=== PATIENT | female | born 1955 | race African-American/Black ===

== ENCOUNTER 2016-11-11 17:33 | Emergency (ER) | payer MEDICARE, MEDICAID ==
[~2016-11-11] VITALS: Ht 165.1 cm; Wt 70.0 kg
[~2016-11-11 17:33] MED LIST: ATOR10TA PO; ESOM40CA PO; KEPP500 PO; LORA-250 PO; MAX PO; METF500T4 PO; MULT-1146 PO; PHEN100C4 PO; calcium citrate
[2016-11-11] MEDS ORDERED: LACTATED RINGERS 1,000 ML IV STA (18:27)
[2016-11-11] MEDS ORDERED: ONDANSETRON HCL 4MG/2ML VIAL IV STA (18:27)
[2016-11-11 19:06] LABS: CLARITY URINE CLEAR (CLEAR); COLOR URINE YELLOW (YELLOW); GLUCOSE URINE NEGATIVE (NEGATIVE); KETONES URINE NEGATIVE (NEGATIVE); LEUKOCYTE ESTERASE URINE NEGATIVE (NEGATIVE); NITRITE URINE NEGATIVE (NEGATIVE); OCCULT BLOOD URINE NEGATIVE (NEGATIVE); PH URINE 6.5 (4.5-8.0); PROTEIN URINE 2+ (NEGATIVE); SPECIFIC GRAVITY URINE 1.015 (1.005-1.030); UROBILINOGEN URINE 0.2 E.U./dL (0.2-1.0)
[2016-11-11 19:20] LABS: BASOPHILS % 0.6 % (0.0-2.0); EOSINOPHILS % 0.6 % (0.0-5.0); HEMATOCRIT. 31.5 % (36.0-48.0); HEMOGLOBIN. 10.3 g/dL (12.0-16.0); LYMPHOCYTES % 21.1 % (20.0-50.0); MEAN CORPUSCULAR HEMOGLOBIN 26.5 pg (28.0-32.0); MEAN CORPUSCULAR HGB CONC 32.6 g/dL (31.0-37.0); MEAN CORPUSCULAR VOLUME 81.5 fL (81.0-99.0); MEAN PLATELET VOLUME 7.8 fl (7.4-10.4); MONOCYTES % 11.5 % (2.0-8.0); NEUTROPHILS % 66.2 % (40.0-76.0); PLATELET 309 x1000/uL (130-400); RED BLOOD CELL COUNT 3.87 mill/uL (4.2-5.4); RED CELL DISTRIBUTION WIDTH 16.5 % (11.6-14.6)
[2016-11-11 19:24] LABS: INR 1.2; PROTHROMBIN TIME 12.3 sec
[2016-11-11 19:29] LABS: CHLORIDE 101 mEq/L (98-107)
[2016-11-11 19:31] LABS: INDEX HEMOLYSI 1 (1-3); INDEX ICTERIC 1 (1-4); INDEX LIPEMIC 1 (1-3)
[2016-11-11 19:33] LABS: ALBUMIN 3.2 g/dL (3.4-5.0); CALCIUM 8.6 mg/dL (8.5-10.1)
[2016-11-11 19:35] LABS: ANION GAP 11; CARBON DIOXIDE 28 mEq/L (21-32); LIPASE 153 IU/L (73-393); UREA NITROGEN BLOOD 26 mg/dL (7-21)
[2016-11-11 19:37] LABS: ALANINE AMINOTRANSFERASE 15 IU/L (13-61); eGFR > 60 mL/min (>60)
[2016-11-11 19:41] LABS: TROPONIN I 0.02 ng/mL (0.00-0.04)
[2016-11-11] MEDS ORDERED: LEVETIRACETAM 500MG TABLET PO ONE (19:45)
[2016-11-11 19:54] LABS: BACTERIA URINE 2+; RBC URINE NONE SEEN /hpf (0-2); SQUAMOUS EPITHELIAL CELL URINE RARE /lpf (RARE/1+); WBC URINE 0-2 /hpf (0-2)
[2016-11-11] MEDS ORDERED: SODIUM CHLORIDE 0.9% 1,000 ML IV ONE (20:15)
[2016-11-11 22:38] VITALS: BP 131/68
== END 2016-11-11 22:40 | disposition home or self-care (01) ==
LOC: ER 17:34
DX: R56.9 Unspecified convulsions (principal); R41.0 Disorientation, unspecified; I10 Essential (primary) hypertension; E11.9 Type 2 diabetes mellitus without complications; I50.9 Heart failure, unspecified; F41.9 Anxiety disorder, unspecified; F12.10 Cannabis abuse, uncomplicated
CPT/HCPCS: 36415; 71010; 80053; 81001; 83605; 83690; 84484; 85025; 85610; 96360; 96361; 99285; J7030; J7120

== ENCOUNTER 2016-11-27 10:41 | Emergency (ER) | payer MEDICARE, MEDICAID ==
[~2016-11-27] VITALS: Ht 160 cm; Wt 62.0 kg
[2016-11-27] MEDS ORDERED: LORAZEPAM 1MG TABLET PO ONE (11:45)
[2016-11-27] MEDS ORDERED: IBUPROFEN 800MG TABLET PO ONE (11:45)
[2016-11-27] MEDS ORDERED: HYDROCODONE/ACETAMINOPHEN 10/325MG TABLET PO ONE (13:30)
[2016-11-27 13:45] VITALS: BP 143/73
[2016-11-27 13:49] LABS: CLARITY URINE CLEAR (CLEAR); COLOR URINE YELLOW (YELLOW); GLUCOSE URINE NEGATIVE (NEGATIVE); KETONES URINE NEGATIVE (NEGATIVE); LEUKOCYTE ESTERASE URINE 1+ (NEGATIVE); NITRITE URINE NEGATIVE (NEGATIVE); OCCULT BLOOD URINE NEGATIVE (NEGATIVE); PROTEIN URINE NEGATIVE (NEGATIVE); SPECIFIC GRAVITY URINE 1.018 (1.005-1.030)
[2016-11-27 14:05] LABS: BACTERIA URINE 2+; RBC URINE 0-2 /hpf (0-2); SQUAMOUS EPITHELIAL CELL URINE 3+ /lpf (RARE/1+)
[2016-12-04] MEDS ORDERED: LAM25 PO (08:39)
[2016-12-04] MEDS ORDERED: ASPI81TA2 PO (08:39)
[2016-12-05] MEDS ORDERED: LEVE500T19 PO (12:18)
[2016-12-05] MEDS ORDERED: METF10002 PO (12:18)
== END 2016-11-27 14:51 | disposition home or self-care (01) ==
LOC: ER 11:08
DX: G89.29 Other chronic pain (principal); M51.26 Other intervertebral disc displacement, lumbar region; F12.90 Cannabis use, unspecified, uncomplicated; Z98.890 Other specified postprocedural states; E11.9 Type 2 diabetes mellitus without complications; F41.9 Anxiety disorder, unspecified; I10 Essential (primary) hypertension; G40.909 Epilepsy, unspecified, not intractable, without status epilepticus
CPT/HCPCS: 72131; 81001; 99285

== ENCOUNTER → 2016-12-04 | Day surgery (SDC) | payer MEDICARE, MEDICAID ==
[~2016-12-04] VITALS: Ht 160 cm; Wt 68.0 kg
[~2016-12-04] MED LIST changes: +ADENOSINE 3 MG/ML 2ML VIAL IV ONE; +ASPI81TA2 PO; +CEFAZOLIN SODIUM 1000MG/VIAL ONE; +DEXT 5% IV STA; +FENTANYL CITRATE/PF 50MCG/ML 2ML VIAL ONE; +HEPARIN SODIUM 1,000 UNIT/1ML VIAL IV ONE; +ISOPROTERENOL HCL IV STA; +LAM25 PO; +LEVE500T19 PO; +LIDOCAINE HCL 1% 20ML VIAL (Pyxis) INJ ONE; +METF10002 PO; +METOCLOPRAMIDE HCL 10MG/2ML VIAL IV PRN; +MIDAZOLAM HCL 2 MG/2 ML VIAL ONE; +PROPOFOL 10MG/ML 100ML 100 ML IV ONE; +WATER IV STA
[2016-12-04 08:48] LABS: HEMATOCRIT 35.3 % (36.0-48.0); HEMOGLOBIN 11.2 g/dL (12.0-16.0); MEAN CORPUSCULAR HEMOGLOBIN 26.3 pg (28.0-32.0); MEAN CORPUSCULAR HGB CONC 31.9 g/dL (31.0-37.0); MEAN CORPUSCULAR VOLUME 82.5 fL (81.0-99.0); PLATELET 265 x1000/uL (130-400); RED BLOOD CELL COUNT 4.28 mill/uL (4.2-5.4); RED CELL DISTRIBUTION WIDTH 16.7 % (11.6-14.6); WHITE BLOOD COUNT 11.4 x1000/uL (4.5-11.0)
[2016-12-04 08:58] LABS: PROTHROMBIN TIME 10.1 sec
[2016-12-04 09:01] LABS: ANION GAP 13; CALCIUM 9.5 mg/dL (8.5-10.1); CARBON DIOXIDE 26 mEq/L (21-32); CHLORIDE 100 mEq/L (98-107); INDEX HEMOLYSI 3 (1-3); INDEX ICTERIC 1 (1-4); INDEX LIPEMIC 1 (1-3); UREA NITROGEN BLOOD 19 mg/dL (7-21); eGFR > 60 mL/min (>60)
[2016-12-04 14:04] LABS: *AMPHETAMINES SCREEN URINE NEGATIVE (NEGATIVE); *BARBITURATES SCREEN URINE NEGATIVE (NEGATIVE); *BENZODIAZEPINES SCREEN URINE NEGATIVE (NEGATIVE); *COCAINE SCREEN URINE NEGATIVE (NEGATIVE); CANNABINOID URINE SCREEN PRESUMTIVE POSITIVE (NEGATIVE); ECSTASY MDMA SCREEN URINE NEGATIVE (NEGATIVE); METHADONE URINE SCREEN NEGATIVE (NEGATIVE); OPIATES URINE SCREEN NEGATIVE (NEGATIVE); PHENCYCLIDINE URINE SCREEN NEGATIVE (NEGATIVE)
[2016-12-04] MEDS: ONDANSETRON HCL 4MG/2ML VIAL IV PRN ×2 (17:38→18:28)
== END | disposition home or self-care (01) ==
LOC: CCL 07:15
PROVIDERS: ATTEND Internal Medicine Clinical Cardiac Electrophysiology
DX: I47.1 Supraventricular tachycardia (principal); I10 Essential (primary) hypertension; I49.3 Ventricular premature depolarization; G40.409 Other generalized epilepsy and epileptic syndromes, not intractable, without status epilepticus; I25.10 Atherosclerotic heart disease of native coronary artery without angina pectoris; Z98.84 Bariatric surgery status; E11.9 Type 2 diabetes mellitus without complications; E78.5 Hyperlipidemia, unspecified; Z87.891 Personal history of nicotine dependence; D64.9 Anemia, unspecified
CPT/HCPCS: 36415; 80048; 80305; 82962; 85027; 85610; 93005; 93620; 93621; C1730; C1731; C1732; C1893; J0153; J0690; J1644; J2250; J2405; J2704; J2765; J3010; J3490; J7060

== ENCOUNTER 2017-03-25 22:33 | Emergency (ER) | payer MEDICARE, MEDICAID ==
[~2017-03-25] VITALS: Ht 165.1 cm; Wt 84.0 kg
[~2017-03-25 22:33] MED LIST changes: -ADENOSINE 3 MG/ML 2ML VIAL IV ONE; +ASPI-1160 PO; -ASPI81TA2 PO; -ATOR10TA PO; -CEFAZOLIN SODIUM 1000MG/VIAL ONE; -DEXT 5% IV STA; -FENTANYL CITRATE/PF 50MCG/ML 2ML VIAL ONE; -HEPARIN SODIUM 1,000 UNIT/1ML VIAL IV ONE; +IOHEXOL-350 100 ML BOTTLE ONE; -ISOPROTERENOL HCL IV STA; -LAM25 PO; +LAMO25TA4 PO; -LIDOCAINE HCL 1% 20ML VIAL (Pyxis) INJ ONE; -LORA-250 PO; -MAX PO; -METOCLOPRAMIDE HCL 10MG/2ML VIAL IV PRN; -MIDAZOLAM HCL 2 MG/2 ML VIAL ONE; -PHEN100C4 PO; -PROPOFOL 10MG/ML 100ML 100 ML IV ONE; +SODIUM CHLORIDE 0.9% 10ML VIAL ONE; +TRIA1TAB94 PO; -WATER IV STA; -calcium citrate
[2017-03-25] MEDS ORDERED: ONDANSETRON HCL 4MG/2ML VIAL IV STA (22:51)
[2017-03-25] MEDS ORDERED: MORPHINE SULFATE 4 MG/ML CPJ (NOT FOR IM USE) IV STA (22:51)
[2017-03-25 23:42] LABS: HEMATOCRIT. 25.6 % (36.0-48.0); HEMOGLOBIN. 8.6 g/dL (12.0-16.0); MEAN CORPUSCULAR HEMOGLOBIN 27.5 pg (28.0-32.0); MEAN CORPUSCULAR VOLUME 81.8 fL (81.0-99.0); MEAN PLATELET VOLUME 7.7 fl (7.4-10.4); PLATELET 213 x1000/uL (130-400); RED BLOOD CELL COUNT 3.12 mill/uL (4.2-5.4); RED CELL DISTRIBUTION WIDTH 15.7 % (11.6-14.6)
[2017-03-25 23:59] LABS: CARBON DIOXIDE 27 mEq/L (21-32); CHLORIDE 94 mEq/L (98-107); TROPONIN I < 0.02 ng/mL (0.00-0.04)
[2017-03-26 01:07] LABS: PLATELET ESTIMATE NORMAL
[2017-03-26 06:22] VITALS: BP 119/74
== END 2017-03-26 06:23 | disposition home or self-care (01) ==
LOC: ER 22:33
DX: G89.18 Other acute postprocedural pain (principal); G40.909 Epilepsy, unspecified, not intractable, without status epilepticus; E11.22 Type 2 diabetes mellitus with diabetic chronic kidney disease; I12.9 Hypertensive chronic kidney disease with stage 1 through stage 4 chronic kidney disease, or unspecified chronic kidney disease; N18.9 Chronic kidney disease, unspecified; Z98.1 Arthrodesis status; Z79.82 Long term (current) use of aspirin
CPT/HCPCS: 36415; 71010; 71275; 80053; 83880; 84484; 85025; 93005; 96374; 96375; 99285; A4216; C1893; J2270; J2405; Q9967

== ENCOUNTER 2017-10-19 14:08 | Inpatient (IN) | payer MEDICARE, MEDICAID ==
[~2017-10-19] VITALS: Ht 160 cm; Wt 66.0 kg
[~2017-10-19 14:08] MED LIST changes: -IOHEXOL-350 100 ML BOTTLE ONE; -SODIUM CHLORIDE 0.9% 10ML VIAL ONE
[2017-10-19 15:39] LABS: BASOPHILS % 0.6 % (0.0-2.0); EOSINOPHILS % 0.7 % (0.0-5.0); HEMATOCRIT. 29.9 % (36.0-48.0); HEMOGLOBIN. 9.5 g/dL (12.0-16.0); LYMPHOCYTES % 24.3 % (20.0-50.0); MEAN CORPUSCULAR HEMOGLOBIN 24.9 pg (28.0-32.0); MEAN CORPUSCULAR VOLUME 78.5 fL (81.0-99.0); MONOCYTES % 12.2 % (2.0-8.0); NEUTROPHILS % 62.2 % (40.0-76.0); PLATELET 288 x1000/uL (130-400); RED BLOOD CELL COUNT 3.81 mill/uL (4.2-5.4); RED CELL DISTRIBUTION WIDTH 17.8 % (11.6-14.6)
[2017-10-19 15:41] LABS: PROTHROMBIN TIME 10.1 sec (9.4-11.6)
[2017-10-19 15:44] LABS: CHLORIDE 104 mEq/L (98-107)
[2017-10-19 15:51] LABS: TROPONIN I < 0.02 ng/mL (0.00-0.04)
[2017-10-19] MEDS ORDERED: LIDOCAINE HCL 1% 20ML VIAL (Pyxis) INJ MC ONE (16:15)
[2017-10-19] MEDS ORDERED: LIDOCAINE HCL/PF 1% 10 MG/ML 5ML VIAL ONE (16:25)
[2017-10-19] MEDS ORDERED: ACETAMINOPHEN 325MG TABLET PO PRN (17:30)
[2017-10-19 18:32] LABS: T4 FREE 1.21 ng/dL (0.76-1.46)
[2017-10-19 18:54] LABS: FOLIC ACID (FOLATE) SERUM 13.2 ng/mL (>5.38)
[2017-10-19 22:20] VITALS: BP 140/50
[2017-10-19] MEDS ORDERED: MORPHINE SULFATE 4 MG/ML CPJ (NOT FOR IM USE) IV PRN (23:12)
[2017-10-19] MEDS ORDERED: NITROGLYCERIN 0.4MG TABLET SL SL PRN (23:12)
[2017-10-19] MEDS ORDERED: ZOLPIDEM TARTRATE 5MG TABLET PO PRN (23:13)
[2017-10-19] MEDS ORDERED: TRAMADOL 50MG TABLET PO PRN (23:13)
[2017-10-19] MEDS ORDERED: ONDANSETRON HCL 4MG/2ML VIAL IV PRN (23:13)
[2017-10-19] MEDS ORDERED: MAGNESIUM/ALUMINUM HYDROXIDE/SIMETHICONE 30ML UDC PO PRN (23:14)
[2017-10-19] MEDS ORDERED: CLONIDINE 0.1MG TABLET PO PRN (23:14)
[2017-10-19] MEDS ORDERED: DIPHENHYDRAMINE 50MG/ML VIAL IV PRN (23:15)
[2017-10-19] MEDS ORDERED: GUAIFENESIN 200MG/10ML SUGAR FREE UDC PO PRN (23:15)
[2017-10-19] MEDS ORDERED: IPRATROPIUM/ALBUTEROL 0.5-3(2.5)MG/3ML NEB INH PRN (23:15)
[2017-10-19] MEDS ORDERED: DOCUSATE SODIUM 100MG CAPSULE PO PRN (23:15)
[2017-10-19] MEDS ORDERED: BLOOD SUGAR DIAGNOSTIC STRIP TEST SCH (23:16)
[2017-10-19] MEDS ORDERED: LEVETIRACETAM 500MG TABLET PO SCH (23:16)
[2017-10-19] MEDS ORDERED: INSULIN LISPRO 100 UNITS/ML SUBCUT SCH (23:16)
[2017-10-19] MEDS ORDERED: NA PHOS,M-B/NA PHOS,DI-BA ENEMA 118ML PR PRN (23:17)
[2017-10-19] MEDS ORDERED: DEXTROSE 50% WATER 50ML SYRINGE IV PRN (23:17)
[2017-10-19 23:20] VITALS: BP 140/50
[2017-10-20] MEDS ORDERED: ENOXAPARIN 40MG/0.4ML SYR SUBCUT SCH (09:00)
[2017-10-20] MEDS ORDERED: PANTOPRAZOLE SODIUM 40 MG/VIAL IV SCH (09:00)
[2017-10-20] MEDS ORDERED: ASPIRIN 325MG EC TABLET PO SCH (09:00)
== END 2017-10-20 | disposition left against medical advice (07) | DRG 101 ==
LOC: ER 15:10 → 8WST 16:57 → EDBEDREQ 17:00 → SUPCPDRO 17:27 → ENRESERV 21:34
PROVIDERS: ADMIT Internal Medicine; ATTEND Internal Medicine
PROC: 0HQ1XZZ Repair Face Skin, External Approach (ICD-10-PCS; principal; 2017-10-19)
DX: R56.9 Unspecified convulsions (principal); E83.51 Hypocalcemia; D64.9 Anemia, unspecified; F17.210 Nicotine dependence, cigarettes, uncomplicated; E11.9 Type 2 diabetes mellitus without complications; I10 Essential (primary) hypertension; R55 Syncope and collapse; W06.XXXA Fall from bed, initial encounter; R00.1 Bradycardia, unspecified; M25.512 Pain in left shoulder; Z53.21 Procedure and treatment not carried out due to patient leaving prior to being seen by health care provider; S01.01XA Laceration without foreign body of scalp, initial encounter; S01.81XA Laceration without foreign body of other part of head, initial encounter; Y93.89 Activity, other specified; Y92.89 Other specified places as the place of occurrence of the external cause; Y99.8 Other external cause status; Z79.84 Long term (current) use of oral hypoglycemic drugs; Z79.82 Long term (current) use of aspirin; Z90.49 Acquired absence of other specified parts of digestive tract; Z79.899 Other long term (current) drug therapy; Z71.6 Tobacco abuse counseling
CPT/HCPCS: 36415; 70450; 71045; 80053; 80061; 82607; 82746; 82962; 83036; 83540; 83550; 83880; 84439; 84443; 84484; 85025; 85610; 93005; J3490

== ENCOUNTER 2018-03-10 14:42 | Emergency (ER) | payer MEDICARE, MEDICAID ==
[~2018-03-10] VITALS: Ht 165.1 cm; Wt 58.0 kg
[~2018-03-10 14:42] MED LIST changes: -KEPP500 PO; -METF10002 PO; -METF500T4 PO; +METF500T6 PO
[2018-03-10] MEDS ORDERED: SODIUM CHLORIDE 0.9% 1,000 ML IV ONE (15:00)
[2018-03-10] MEDS ORDERED: ASPIRIN 81MG TABLET PO ONE (15:00)
[2018-03-10 15:41] LABS: BASOPHILS % 0.5 % (0.0-2.0); EOSINOPHILS % 0.6 % (0.0-5.0); HEMATOCRIT. 27.8 % (36.0-48.0); HEMOGLOBIN. 8.9 g/dL (12.0-16.0); MEAN CORPUSCULAR HEMOGLOBIN 23.6 pg (28.0-32.0); MEAN CORPUSCULAR VOLUME 73.6 fL (81.0-99.0); MONOCYTES % 8.9 % (2.0-8.0); PLATELET 286 x1000/uL (130-400); RED BLOOD CELL COUNT 3.78 mill/uL (4.2-5.4); RED CELL DISTRIBUTION WIDTH 19.5 % (11.6-14.6)
[2018-03-10 15:45] LABS: CHLORIDE 102 mEq/L (98-107)
[2018-03-10 15:48] LABS: ETHANOL BLOOD < 10 mg/dL; PROTHROMBIN TIME 10.7 sec (9.4-11.6)
[2018-03-10 16:10] VITALS: BP 121/68
== END 2018-03-10 16:08 | disposition left against medical advice (07) ==
LOC: ER 14:42 → CANBEDREQ 17:33
DX: R55 Syncope and collapse (principal); E11.9 Type 2 diabetes mellitus without complications; I10 Essential (primary) hypertension; Z79.82 Long term (current) use of aspirin; Z79.899 Other long term (current) drug therapy
CPT/HCPCS: 36415; 71045; 80053; 83880; 84484; 85025; 85610; 85730; 86850; 86870; 86900; 86901; 93005; 96360; 99285; G0482; J7030

== ENCOUNTER 2021-07-01 09:22 | Inpatient (IN) | payer MEDICARE, MEDICAID ==
[2021-07-01] VITALS (26 sets, daily range): BP systolic 120–190; BP diastolic 57–116
[~2021-07-01] VITALS: Ht 165.1 cm; Wt 54.0 kg
[~2021-07-01 09:22] MED LIST changes: -LAMO25TA4 PO; +LAMO25TA9 PO; +METF-414 PO; -METF500T6 PO
[2021-07-01] MEDS ORDERED: LEVETIRACETAM 1000MG PREMIX 100 ML IV ONE (09:45)
[2021-07-01 10:03] LABS: HEMATOCRIT. 30.8 % (36.0-48.0); HEMOGLOBIN. 9.1 g/dL (12.0-16.0); MEAN CORPUSCULAR HEMOGLOBIN 20.5 pg (28.0-32.0); PLATELET 271 x1000/uL (130-400); RED BLOOD CELL COUNT 4.46 mill/uL (4.2-5.4); RED CELL DISTRIBUTION WIDTH 24.5 % (11.6-14.6)
[2021-07-01 10:09] LABS: CHLORIDE 106 mEq/L (98-107)
[2021-07-01 10:15] LABS: ETHANOL BLOOD < 10 mg/dL
[2021-07-01 11:09] LABS: PLATELET ESTIMATE NORMAL
[2021-07-01] MEDS ORDERED: LABETALOL 5MG/ML SYR 20 MG/4 ML SYRINGE IV ONE (11:15)
[2021-07-01] MEDS ORDERED: NITROGLYCERIN 0.4MG TABLET SL SL NR (11:15)
[2021-07-01] MEDS ORDERED: LORAZEPAM 2MG/ML CPJ IV ONE (11:15)
[2021-07-01] MEDS ORDERED: HALOPERIDOL LACTATE 5MG/ML VIAL IM ONE (11:30)
[2021-07-01] MEDS: NITROGLYCERIN 50MG PREMIX 250 ML IV PRN (12:15)
[2021-07-01] MEDS ORDERED: LEVETIRACETAM 500 MG in SODIUM CHLORIDE 0.9% 100 ML IV SCH (14:15)
[2021-07-01 15:25] LABS: CLARITY URINE CLEAR (CLEAR); COLOR URINE YELLOW (YELLOW); KETONES URINE NEGATIVE (NEGATIVE); LEUKOCYTE ESTERASE URINE NEGATIVE (NEGATIVE); NITRITE URINE NEGATIVE (NEGATIVE); OCCULT BLOOD URINE 1+ (NEGATIVE); PH URINE 6.5 (4.5-8.0); PROTEIN URINE 2+ (NEGATIVE); UROBILINOGEN URINE 0.2 E.U./dL (0.2-1.0)
[2021-07-01 17:04] LABS: *AMPHETAMINES SCREEN URINE NEGATIVE (NEGATIVE); *BARBITURATES SCREEN URINE NEGATIVE (NEGATIVE); *BENZODIAZEPINES SCREEN URINE PRESUMTIVE POSITIVE (NEGATIVE); *COCAINE SCREEN URINE NEGATIVE (NEGATIVE); METHADONE URINE SCREEN NEGATIVE (NEGATIVE); OPIATES URINE SCREEN NEGATIVE (NEGATIVE); PHENCYCLIDINE URINE SCREEN NEGATIVE (NEGATIVE)
[2021-07-01 17:06] LABS: CANNABINOID URINE SCREEN PRESUMTIVE POSITIVE (NEGATIVE)
[2021-07-01] MEDS ORDERED: DEXTROSE 50% WATER 50ML SYRINGE IV PRN (19:15)
[2021-07-01] MEDS ORDERED: ONDANSETRON HCL 4MG/2ML INJ IV PRN (19:15)
[2021-07-01] MEDS ORDERED: LEVETIRACETAM 500MG PREMIX 100 ML IV SCH (21:00)
[2021-07-01] MEDS: INSULIN LISPRO 100 UNITS/ML SUBCUT SCH (21:00)
[2021-07-01] MEDS: BLOOD SUGAR DIAGNOSTIC STRIP TEST SCH (21:00)
[2021-07-01] MEDS: LEVETIRACETAM 500MG PREMIX 100 ML IV SCH (21:14)
[2021-07-02] VITALS (90 sets, daily range): BP systolic 119–186; BP diastolic 37–136
[2021-07-02 05:38] LABS: CHLORIDE 103 mEq/L (98-107)
[2021-07-02 05:43] LABS: BASOPHILS % 0.4 % (0.0-2.0); EOSINOPHILS % 0.1 % (0.0-5.0); HEMATOCRIT. 25.4 % (36.0-48.0); HEMOGLOBIN. 7.8 g/dL (12.0-16.0); LYMPHOCYTES % 9.7 % (20.0-50.0); MEAN CORPUSCULAR HEMOGLOBIN 20.3 pg (28.0-32.0); MEAN PLATELET VOLUME 9.1 fl (7.4-10.4); MONOCYTES % 14.9 % (2.0-8.0); NEUTROPHILS % 74.9 % (40.0-76.0); PLATELET 287 x1000/uL (130-400); RED BLOOD CELL COUNT 3.85 mill/uL (4.2-5.4); RED CELL DISTRIBUTION WIDTH 24.3 % (11.6-14.6)
[2021-07-02 05:48] LABS: HDL CHOLESTEROL 83 mg/dL (40-59); LDL CHOLESTEROL 88 mg/dL (5-100)
[2021-07-02] MEDS: BLOOD SUGAR DIAGNOSTIC STRIP TEST SCH ×4 (06:30→21:32)
[2021-07-02] MEDS: NITROGLYCERIN 50MG PREMIX 250 ML IV PRN (06:48)
[2021-07-02] MEDS: INSULIN LISPRO 100 UNITS/ML SUBCUT SCH ×4 (07:00→21:00)
[2021-07-02 08:37] LABS: PLATELET ESTIMATE NORMAL
[2021-07-02] MEDS ORDERED: ASPIRIN 81MG TABLET PO SCH (09:00)
[2021-07-02] MEDS ORDERED: TRIAMTERENE/HYDROCHLOROTHIAZID 75/50MG TABLET PO SCH (09:00)
[2021-07-02] MEDS: LEVETIRACETAM 500MG PREMIX 100 ML IV SCH ×2 (09:54→21:58)
[2021-07-02] MEDS ORDERED: HYDRALAZINE HCL 50MG TABLET PO SCH (11:00)
[2021-07-02] MEDS ORDERED: IPRATROPIUM/ALBUTEROL 0.5-3(2.5)MG/3ML NEB HHN PRN (11:15)
[2021-07-02 12:38] LABS: PROTHROMBIN TIME 10.9 sec (9.6-11.0)
[2021-07-02] MEDS: AMLODIPINE 5MG TABLET PO SCH ×2 (13:55→21:59)
[2021-07-02] MEDS: LOSARTAN POTASSIUM 25 MG TABLET PO SCH ×2 (13:55→21:58)
[2021-07-02] MEDS ORDERED: CLONIDINE 0.1MG TABLET PO PRN (22:45)
[2021-07-02] MEDS ORDERED: HYDRALAZINE 20MG/ML VIAL IV PRN (22:45)
[2021-07-03] VITALS (9 sets, daily range): BP systolic 133–176; BP diastolic 65–120
[2021-07-03] MEDS: BLOOD SUGAR DIAGNOSTIC STRIP TEST SCH (07:20)
[2021-07-03] MEDS: INSULIN LISPRO 100 UNITS/ML SUBCUT SCH (07:50)
== END 2021-07-03 08:25 | disposition left against medical advice (07) | DRG 101 ==
LOC: ER 09:22 → MICUSO 12:47 → EDBEDREQTM 13:14 → EDBEDREQSVC 13:14 → ENRESERV 16:33 → 6WST 07-03 03:00
PROVIDERS: ADMIT Family Medicine; ATTEND Family Medicine
DX: G40.909 Epilepsy, unspecified, not intractable, without status epilepticus (principal); I16.1 Hypertensive emergency; E44.1 Mild protein-calorie malnutrition; Z68.1 Body mass index [BMI] 19.9 or less, adult; E78.5 Hyperlipidemia, unspecified; E11.9 Type 2 diabetes mellitus without complications; I50.9 Heart failure, unspecified; I11.0 Hypertensive heart disease with heart failure; D64.9 Anemia, unspecified; F17.210 Nicotine dependence, cigarettes, uncomplicated; F12.90 Cannabis use, unspecified, uncomplicated; Z79.899 Other long term (current) drug therapy
CPT/HCPCS: 36415; 71045; 80048; 80053; 80061; 80305; 80320; 81003; 82140; 82962; 83036; 83540; 83550; 83735; 84443; 84484; 85025; 92610; 93005; 93306; 99285; J0360; J1630; J1953; J2060; J3490; G0480

== ENCOUNTER → 2021-11-02 | Day surgery (SDC) | payer MEDICARE, MEDICAID ==
[~2021-11-02] VITALS: Ht 160 cm; Wt 61.2 kg
[~2021-11-02] MED LIST changes: +ACETAMINOPHEN 325MG TABLET PO PRN; +FENTANYL CITRATE/PF 50MCG/ML 2ML VIAL ONE; +HEPARIN SODIUM 1,000 UNIT/1ML VIAL IV ONE; +HYDRALAZINE 20MG/ML VIAL IV NR; +HYDROCODONE/ACETAMINOPHEN 5/325MG TABLET PO NR; +IODIXANOL 320MG/ML 100 ML BOTTLE IV ONE; +KEPP250 MT; +LAMC5 MT; +LIDOCAINE HCL 1% 30ML VIAL (10MG/ML) ONE; +MIDAZOLAM HCL 2 MG/2 ML VIAL ONE; +NALOXONE HCL 0.4MG/ML VIAL IV PRN; +NICARDIPINE 100MCG/ML 10ML VIAL (CATH LAB) IV ONE; +NITROGLYCERIN 50MCG/ML 10ML VIAL (CATH LAB) IV ONE; +ONDANSETRON HCL 4MG/2ML INJ IV PRN
[2021-11-02 16:28] VITALS: BP 112/51
== END | disposition home or self-care (01) ==
LOC: CCL 08:56
PROVIDERS: ATTEND Specialist
DX: R07.9 Chest pain, unspecified (principal); R94.39 Abnormal result of other cardiovascular function study; I25.10 Atherosclerotic heart disease of native coronary artery without angina pectoris; I10 Essential (primary) hypertension; E11.9 Type 2 diabetes mellitus without complications; D64.9 Anemia, unspecified; E88.09 Other disorders of plasma-protein metabolism, not elsewhere classified; Z79.899 Other long term (current) drug therapy; Z98.890 Other specified postprocedural states; Z20.822 Contact with and (suspected) exposure to COVID-19
CPT/HCPCS: 87426; 93458; 99152; C1769; C1893; J0360; J1644; J2250; J3010; J3490; Q9967; G0500